=== PATIENT | male | born 1980 | race Caucasian/White ===

== ENCOUNTER 2021-11-06 10:00 | Inpatient (IN) | payer OTHER ==
[~2021-11-06] VITALS: Ht 177.8 cm; Wt 89.6 kg
[~2021-11-06 10:00] MED LIST: AMOX500 PO; FEXPSEER PO; LISI10 PO; LISI5 PO
[2021-11-06 12:01] LABS: BASOPHILS ABSOLUTE AUTO 0.13 K/mm3 (0.00-0.23); BASOPHILS PERCENT AUTO 0 % (0-2); EOSINOPHILS PERCENT AUTO 0 % (0-6); Hematocrit 44.7 % (37.0-53.0); Hemoglobin 15.4 g/dL (13.5-17.5); IMMATURE GRAN ABSOLUTE AUTO 0.43 K/mm3 (0.00-0.10); IMMATURE GRAN PERCENT AUTO 1 % (0-1); LYMPHOCYTES ABSOLUTE AUTO 2.41 K/mm3 (0.84-5.20); LYMPHOCYTES PERCENT AUTO 7 % (21-46); MONOCYTES ABSOLUTE AUTO 4.12 K/mm3 (0.16-1.47); MONOCYTES PERCENT AUTO 13 % (4-13); Mean Corpuscular HGB 30.1 pg (26.0-34.0); Mean Corpuscular HGB Conc 34.5 g/dL (31.5-36.5); Mean Corpuscular Volume 87 fL (80-100); Mean Platelet Volume 11.7 fL (9.1-12.4); NEUTROPHILS ABSOLUTE AUTO 25.98 K/mm3 (1.96-9.15); NEUTROPHILS PERCENT AUTO 79 % (41-73); Platelet Count 393 K/mm3 (150-400); RDW Standard Deviation 38.9 fL (35.1-46.3); Red Blood Cell Count 5.12 M/mm3 (4.30-5.90); White Blood Cell Count 33.07 K/mm3 (4.00-11.30)
[2021-11-06 13:09] LABS: Influenza A, PCR NEGATIVE (NEGATIVE); Influenza B, PCR NEGATIVE (NEGATIVE); Resp Syncytial Virus, PCR NEGATIVE (NEGATIVE); SARS-Cov-2 (COVID-19) PCR, MMC NEGATIVE (NEGATIVE)
[2021-11-06 13:18] LABS: International Normalized Ratio 1.08; Prothrombin Time Results 11.3 Sec (9.7-11.5)
[2021-11-06 13:22] LABS: Alanine Aminotransfer (ALT/SGP 46 U/L (12-78); Albumin, Blood 2.5 g/dL (3.4-5.0); Albumin/Globulin Ratio 0.5 (0.8-1.8); Alk Phos 193 U/L (50-136); Anion Gap 10 mmol/L (6-16); Aspartate Aminotrans (AST/SGOT 33 U/L (12-37); Bilirubin, Total 0.4 mg/dL (0.1-1.0); Blood Urea Nitrogen 10 mg/dL (8-24); Bun/Creatinine Ratio 14.4 (12.0-20.0); CO2, Blood 29 mmol/L (21-32); Chloride, Blood 92 mmol/L (98-108); Globulin, Blood 5.5 g/dL (2.2-4.0); Glomerular Filtration Rate >60 (60-); Glucose, Blood 353 mg/dL (70-99); Potassium, Blood 3.7 mmol/L (3.5-5.5); Sodium, Blood 131 mmol/L (136-145)
[2021-11-06 14:04] LABS: Source, Urine Clean Catch
[2021-11-06 14:09] LABS: Appearance, Urine Clear (Clear); Bilirubin, Urine Neg (Neg); Blood, Urine Neg (Neg); Color, Urine Yellow (P-Yellow); Glucose Qualitative, Urine 4+ (Neg); Ketones, Urine 2+ (Neg); Leukocyte Esterase, Urine Neg (Neg); Nitrite, Urine Neg (Neg); Protein, Urine 3+ (Neg); Urobilinogen, Urine NORM (Normal)
[2021-11-06 14:20] LABS: Bacteria Few /hpf; Red Blood Cells, Urine Not Seen /hpf (0-2); Squamous Epithelial Cells Rare /hpf (Few); White Blood Cells, Urine Rare /hpf (0-5)
--- NOTE | 2021-11-06 19:12 | NUR ---
1740 RECEIVED PT TO RM 339 VIA JOHNNYRKARI FROM ER. PT IS A&O, PLEASANT AND CO-OP. PT TO ER WITH C/O CONGESTION AND SOB, FEELING TERRIBLE; ADMITTED FOR PNM. PER REPORT FROM JOIE SIDHU, PT RECEIVED ROCEPHIN AND ZITHROMYCIN IN ER. UNASYN INFUSING AT THIS TIME. TO RM AT BS WHEN ADMITTED. OTHER FAMILY TO RM AFTER LEFT. PT SLEEPING MOSTLY AFTER ADMISSION, BUT WOKE WITH FAMILY. DENIES FURTHER NEEDS AT THIS TIME. CALL LT IN REACH.
--- NOTE | 2021-11-07 03:03 | NUR ---
WINDING OPERATOR SUMMARY HAS BEEN RESTING QUIETLY WITH FEW INTERRUPTIONS. LUNG SOUNDS DIMINISHED PER AUSCULTATION WHEN ASSESED. IV ANTIBIOTICS INFUSING PER MD ORDERS - SEE MAR FOR DETAILS. LR INFUSING AT 100 ML/HR. UP TO BATHROOM AD BALDEMAR. MED TELE SINUS TACH. ASYMPTOMATIC. CALL LIGHT IN REACH
[2021-11-07 05:01] LABS: BASOPHILS ABSOLUTE AUTO 0.09 K/mm3 (0.00-0.23); BASOPHILS PERCENT AUTO 0 % (0-2); EOSINOPHILS ABSOLUTE AUTO 0.05 K/mm3 (0.00-0.68); EOSINOPHILS PERCENT AUTO 0 % (0-6); Hematocrit 41.1 % (37.0-53.0); Hemoglobin 13.8 g/dL (13.5-17.5); IMMATURE GRAN ABSOLUTE AUTO 0.23 K/mm3 (0.00-0.10); IMMATURE GRAN PERCENT AUTO 1 % (0-1); LYMPHOCYTES ABSOLUTE AUTO 3.27 K/mm3 (0.84-5.20); LYMPHOCYTES PERCENT AUTO 12 % (21-46); MONOCYTES ABSOLUTE AUTO 2.85 K/mm3 (0.16-1.47); MONOCYTES PERCENT AUTO 11 % (4-13); Mean Corpuscular HGB 29.6 pg (26.0-34.0); Mean Corpuscular HGB Conc 33.6 g/dL (31.5-36.5); Mean Corpuscular Volume 88 fL (80-100); NEUTROPHILS ABSOLUTE AUTO 20.68 K/mm3 (1.96-9.15); NEUTROPHILS PERCENT AUTO 76 % (41-73); Platelet Count 375 K/mm3 (150-400); RDW Coefficient Variation 12.3 % (11.7-14.2); RDW Standard Deviation 39.4 fL (35.1-46.3); Red Blood Cell Count 4.67 M/mm3 (4.30-5.90); White Blood Cell Count 27.17 K/mm3 (4.00-11.30)
[2021-11-07 05:48] LABS: Anion Gap 7 mmol/L (6-16); Blood Urea Nitrogen 10 mg/dL (8-24); Bun/Creatinine Ratio 16.3 (12.0-20.0); CO2, Blood 28 mmol/L (21-32); Calcium, Blood 8.6 mg/dL (8.5-10.1); Chloride, Blood 99 mmol/L (98-108); Creatinine, Blood 0.61 mg/dL (0.60-1.20); Glomerular Filtration Rate >60 (60-); Glucose, Blood 204 mg/dL (70-99); Potassium, Blood 3.5 mmol/L (3.5-5.5); Sodium, Blood 134 mmol/L (136-145)
--- NOTE | 2021-11-07 19:39 | NUR ---
SHIFT SUMMARY- PT ALERT, ORIENTED AND INDEPENDENT IN THEROOM. PT HAS BEEN SWEATING A LOT TODAY, DR AWARE. IVF DC'D PT NOW ON IV ABX Q6, TELE DC'D PRIOR TO A SHOWER AT THE END OF THE SHIFT. PT STATED AT SHIFT CHANGE DURRING BEDSIDE REPORT THAT HE NO LONGER HAS ANY SINUS PAIN, PT STATED THE SHOWER REALLY HELPED ALOT. NIGHT RN VITALIY PRESENT FOR THIS DISCUSSION AND IS AWARE. PT CURRENTLY IN BED, CALL LIGHT IN REACH BEDSIDE REPORT COMPLETED NO S&S OF DISTRESS NOTED.
--- NOTE | 2021-11-08 03:27 | NUR ---
MEDICAL ASSISTANT CARDIOLOGY SUMMARY HAS BEEN RESTING QUIETLY WITH FEW INTERRUPTIONS SINCE SHIFT COMMENCE. CBG WAS 299 AT BEDTIME, COVERAGE GIVEN. DISCUSSED DIABETES WITH NURSE. IV ANTIBIOTICS INFUSING ORDERED - SEE MAR FOR DETAILS. BP ELEVATED, ANTIHYPERTENSIVE ADMINISTERED, BP TRENDING DOWN. WILL CONTINUE TO MONITOR. CALL LIGHT IN REACH
[2021-11-08 05:28] LABS: BASOPHILS ABSOLUTE AUTO 0.07 K/mm3 (0.00-0.23); BASOPHILS PERCENT AUTO 1 % (0-2); EOSINOPHILS ABSOLUTE AUTO 0.27 K/mm3 (0.00-0.68); EOSINOPHILS PERCENT AUTO 2 % (0-6); Hematocrit 42.6 % (37.0-53.0); Hemoglobin 14.2 g/dL (13.5-17.5); IMMATURE GRAN ABSOLUTE AUTO 0.14 K/mm3 (0.00-0.10); IMMATURE GRAN PERCENT AUTO 1 % (0-1); LYMPHOCYTES ABSOLUTE AUTO 2.52 K/mm3 (0.84-5.20); LYMPHOCYTES PERCENT AUTO 20 % (21-46); MONOCYTES ABSOLUTE AUTO 1.42 K/mm3 (0.16-1.47); MONOCYTES PERCENT AUTO 11 % (4-13); Mean Corpuscular HGB 29.3 pg (26.0-34.0); Mean Corpuscular HGB Conc 33.3 g/dL (31.5-36.5); Mean Corpuscular Volume 88 fL (80-100); Mean Platelet Volume 11.1 fL (9.1-12.4); NEUTROPHILS ABSOLUTE AUTO 8.13 K/mm3 (1.96-9.15); NEUTROPHILS PERCENT AUTO 65 % (41-73); Platelet Count 420 K/mm3 (150-400); RDW Coefficient Variation 12.3 % (11.7-14.2); RDW Standard Deviation 39.8 fL (35.1-46.3); Red Blood Cell Count 4.85 M/mm3 (4.30-5.90); White Blood Cell Count 12.55 K/mm3 (4.00-11.30)
[2021-11-08 06:03] LABS: Anion Gap 7 mmol/L (6-16); Blood Urea Nitrogen 17 mg/dL (8-24); Bun/Creatinine Ratio 28.7 (12.0-20.0); CO2, Blood 28 mmol/L (21-32); Calcium, Blood 9.3 mg/dL (8.5-10.1); Chloride, Blood 103 mmol/L (98-108); Creatinine, Blood 0.59 mg/dL (0.60-1.20); Glomerular Filtration Rate >60 (60-); Glucose, Blood 210 mg/dL (70-99); Phosphorus, Blood 4.2 mg/dL (2.5-4.9); Potassium, Blood 3.7 mmol/L (3.5-5.5); Sodium, Blood 138 mmol/L (136-145)
--- NOTE | 2021-11-08 06:45 | NUR ---
NOTE BLOODY CONTENTS IN DRINKING CUP. PT VOICED HAVING HAD HEMOPTYSIS FOR THE "PAST 10 DAYS". AND SAID THAT IS WHY HE WAS HERE. WILL PASS THIS ON TO AM FOR OBSERVATION AND POSSIBLE FOLLOW UP. CALL LIGHT IN REACH
[2021-11-08] MEDS ORDERED: AZIT250 PO (16:22)
[2021-11-08] MEDS ORDERED: Acetaminophen325 M1 PO (16:22)
[2021-11-08] MEDS ORDERED: Prinivil10 MG PO (16:23)
[2021-11-08] MEDS ORDERED: METF500 PO (16:24)
[2021-11-08] MEDS ORDERED: CEFP200 PO (16:24)
[2021-11-08] MEDS ORDERED: GLIP5ER PO (16:24)
[2021-11-08] MEDS ORDERED: VISBIOME 112.51 EACH PO (16:24)
--- NOTE | 2021-11-08 17:04 | NUR ---
DISCHARGE SUMMARY IV REMOVED, DISCHARGE EDUCATION REVIEWED WITH AND SIGNED BY PT. PT TRANSPORTED TO [facility] WITH PERSONAL BELONGINGS. MEDS FAXED TO PHARMACY
== END 2021-11-08 16:54 | disposition home or self-care (01) | DRG 871 ==
LOC: ER 10:00 → MEDS 14:49
PROVIDERS: Physician Assistant; ADMIT Family Medicine
DX: A41.9 Sepsis, unspecified organism (principal); J18.9 Pneumonia, unspecified organism; E87.1 Hypo-osmolality and hyponatremia; R04.2 Hemoptysis; E11.9 Type 2 diabetes mellitus without complications; Z20.822 Contact with and (suspected) exposure to COVID-19; J01.00 Acute maxillary sinusitis, unspecified; J01.20 Acute ethmoidal sinusitis, unspecified; D72.829 Elevated white blood cell count, unspecified; I10 Essential (primary) hypertension; F17.210 Nicotine dependence, cigarettes, uncomplicated
CPT/HCPCS: 0241U; 36415; 70450; 71045; 71260; 80048; 80053; 80069; 81001; 82947; 83036; 83605; 85025; 85610; 85730; 87070; 87086; 87205; 93005; 93010; 96365; 96375; 99285-25; A9270; J0295; J0360; J0456; J0696; J1650; J1815; J1885; J7030; J7040; J7050; J7120; Q9967

== ENCOUNTER 2023-11-23 21:35 | Emergency (ER) | payer OTHER ==
[~2023-11-23] VITALS: Ht 177.8 cm; Wt 88.5 kg
[~2023-11-23 21:35] MED LIST changes: +AZIT250 PO; +Acetaminophen325 M1 PO; +CEFP200 PO; +GLIP5ER PO; +METF500 PO; +Prinivil10 MG PO; +VISBIOME 112.51 EACH PO
[2023-11-23 21:51] VITALS: BP 157/101
== END 2023-11-23 22:10 | disposition home or self-care (01) ==
LOC: ER 21:35
DX: T16.1XXA Foreign body in right ear, initial encounter (principal); I10 Essential (primary) hypertension; F17.210 Nicotine dependence, cigarettes, uncomplicated; W44.G1XA Audio device entering into or through a natural orifice, initial encounter; Z79.01 Long term (current) use of anticoagulants; Z79.84 Long term (current) use of oral hypoglycemic drugs; Z79.899 Other long term (current) drug therapy
CPT/HCPCS: 69200; 99282-25

== ENCOUNTER 2025-05-11 15:02 | Emergency (ER) | payer OTHER ==
[~2025-05-11] VITALS: Ht 177.8 cm; Wt 86.2 kg
[2025-05-11 15:09] VITALS: BP 166/106
[2025-05-11] MEDS ORDERED: Ketorolac Tromethamine 30mg Vial IM ONE (19:55)
== END 2025-05-11 20:12 | disposition home or self-care (01) ==
LOC: ER 15:02
DX: M79.672 Pain in left foot (principal); I10 Essential (primary) hypertension; F17.210 Nicotine dependence, cigarettes, uncomplicated; Z79.899 Other long term (current) drug therapy; Z79.84 Long term (current) use of oral hypoglycemic drugs
CPT/HCPCS: 73630; 96372; 99283-25; J1885

== ENCOUNTER → 2025-05-20 | Outpatient (CLI) | payer OTHER ==
[2025-05-20 15:42] LABS: BASOPHILS ABSOLUTE AUTO 0.08 K/mm3 (0.00-0.23); BASOPHILS PERCENT AUTO 1 % (0-2); EOSINOPHILS ABSOLUTE AUTO 0.39 K/mm3 (0.00-0.68); EOSINOPHILS PERCENT AUTO 4 % (0-6); Hematocrit 44.0 % (37.0-53.0); Hemoglobin 14.7 g/dL (13.5-17.5); IMMATURE GRAN ABSOLUTE AUTO 0.03 K/mm3 (0.00-0.10); IMMATURE GRAN PERCENT AUTO 0 % (0-1); LYMPHOCYTES ABSOLUTE AUTO 1.94 K/mm3 (0.84-5.20); LYMPHOCYTES PERCENT AUTO 18 % (21-46); MONOCYTES ABSOLUTE AUTO 1.27 K/mm3 (0.16-1.47); MONOCYTES PERCENT AUTO 12 % (4-13); Mean Corpuscular HGB Conc 33.4 g/dL (31.5-36.5); Mean Corpuscular Volume 90 fL (80-100); NEUTROPHILS ABSOLUTE AUTO 6.96 K/mm3 (1.96-9.15); NEUTROPHILS PERCENT AUTO 65 % (41-73); NRBC ABSOLUTE 0.00 K/mm3 (0.00-0.02); NRBC Auto 0.0 /100 WBC (0.0-0.2); Platelet Count 396 K/mm3 (150-400); RDW Coefficient Variation 12.4 % (11.7-14.2); RDW Standard Deviation 41.1 fL (35.1-46.3)
[2025-05-20 15:59] LABS: Anion Gap 9.0 mmol/L (3-11); Blood Urea Nitrogen 15.0 mg/dL (8-24); C-REACTIVE PROTEIN, EXT RANGE 11.2 mg/dL (0.000-0.300); CO2, Blood 28.0 mmol/L (21-32); Calcium, Blood 9.6 mg/dL (8.5-10.1); Chloride, Blood 101.0 mmol/L (98-108); Creatinine, Blood 0.71 mg/dL (0.60-1.20); Glucose, Blood 242.0 mg/dL (70-99); Potassium, Blood 4.0 mmol/L (3.5-5.5); Sodium, Blood 134.0 mmol/L (136-145); Uric Acid, Blood 4.2 mg/dL (3.5-7.2)
== END | disposition home or self-care (01) ==
LOC: LAB 15:32 → LAB SHORT 15:32
PROVIDERS: Physician Assistant
DX: I10 Essential (primary) hypertension (principal); R22.42 Localized swelling, mass and lump, left lower limb; M25.572 Pain in left ankle and joints of left foot; E13.9 Other specified diabetes mellitus without complications
CPT/HCPCS: 80048; 84550; 85025; 85651; 86140

== ENCOUNTER 2025-06-11 00:50 | Day surgery (SDC) | payer OTHER ==
[~2025-06-11 00:50] MED LIST changes: +ATOR10 PO; +CEFTRIAXONE2 G1 IV; +LOSA50 PO; +OXYC5 PO; +OZEMPIC2 MG/0.75 SC
[2025-06-11] MEDS ORDERED: CefTRIAXone Sodium 2,000 MG in NS 100 ML IV SCH (01:00)
[2025-06-11 14:30] VITALS: BP 148/89
== END 2025-06-11 14:56 | disposition home or self-care (01) ==
LOC: ATC 00:50
DX: E11.69 Type 2 diabetes mellitus with other specified complication (principal); M86.072 Acute hematogenous osteomyelitis, left ankle and foot; I10 Essential (primary) hypertension; Z87.891 Personal history of nicotine dependence; Z79.84 Long term (current) use of oral hypoglycemic drugs; Z79.899 Other long term (current) drug therapy
CPT/HCPCS: 96365; J0696

== ENCOUNTER 2025-06-12 01:29 | Day surgery (SDC) | payer OTHER ==
[~2025-06-12 01:29] MED LIST changes: +CefTRIAXone Sodium 2,000 MG in NS 100 ML IV SCH
[2025-06-12 14:27] VITALS: BP 160/98
== END 2025-06-12 14:50 | disposition home or self-care (01) ==
LOC: ATC 01:29
DX: M86.072 Acute hematogenous osteomyelitis, left ankle and foot (principal); I10 Essential (primary) hypertension; E11.9 Type 2 diabetes mellitus without complications; Z87.891 Personal history of nicotine dependence; Z79.84 Long term (current) use of oral hypoglycemic drugs; Z79.899 Other long term (current) drug therapy
CPT/HCPCS: 96365; J0696

== ENCOUNTER 2025-06-13 09:32 | Day surgery (SDC) | payer OTHER ==
[2025-06-13 09:43] VITALS: BP 150/90
== END 2025-06-13 10:10 | disposition home or self-care (01) ==
LOC: ATC 09:32
DX: E11.69 Type 2 diabetes mellitus with other specified complication (principal); M86.072 Acute hematogenous osteomyelitis, left ankle and foot; I10 Essential (primary) hypertension; Z87.891 Personal history of nicotine dependence; Z79.84 Long term (current) use of oral hypoglycemic drugs; Z79.899 Other long term (current) drug therapy
CPT/HCPCS: 96365; J0696

== ENCOUNTER 2025-06-14 02:10 | Day surgery (SDC) | payer OTHER ==
[~2025-06-14 02:10] MED LIST changes: -CefTRIAXone Sodium 2,000 MG in NS 100 ML IV SCH
[2025-06-14] MEDS ORDERED: CefTRIAXone Sodium 2,000 MG in NS 100 ML IV SCH (06:00)
[2025-06-14 09:20] VITALS: BP 134/77
== END 2025-06-14 09:48 | disposition home or self-care (01) ==
LOC: ATC 02:10
DX: M86.072 Acute hematogenous osteomyelitis, left ankle and foot (principal); E11.9 Type 2 diabetes mellitus without complications; I10 Essential (primary) hypertension; Z87.891 Personal history of nicotine dependence; Z79.84 Long term (current) use of oral hypoglycemic drugs; Z79.899 Other long term (current) drug therapy
CPT/HCPCS: 96365; J0696

== ENCOUNTER 2025-06-15 00:15 | Day surgery (SDC) | payer OTHER ==
[2025-06-15] MEDS ORDERED: CefTRIAXone Sodium 2,000 MG in NS 100 ML IV SCH (01:00)
[2025-06-15 09:10] VITALS: BP 157/82
== END 2025-06-15 09:35 | disposition home or self-care (01) ==
LOC: ATC 00:15
DX: M86.072 Acute hematogenous osteomyelitis, left ankle and foot (principal); I10 Essential (primary) hypertension; E11.9 Type 2 diabetes mellitus without complications; Z87.891 Personal history of nicotine dependence; Z79.84 Long term (current) use of oral hypoglycemic drugs; Z79.899 Other long term (current) drug therapy
CPT/HCPCS: 96365; J0696

== ENCOUNTER 2025-06-16 01:23 | Day surgery (SDC) | payer OTHER ==
[~2025-06-16 01:23] MED LIST changes: +CefTRIAXone Sodium 2,000 MG in NS 100 ML IV SCH
[2025-06-16 09:13] VITALS: BP 167/111
== END 2025-06-16 09:30 | disposition home or self-care (01) ==
LOC: ATC 01:23
DX: E11.69 Type 2 diabetes mellitus with other specified complication (principal); M86.072 Acute hematogenous osteomyelitis, left ankle and foot; I10 Essential (primary) hypertension; Z87.891 Personal history of nicotine dependence; Z79.84 Long term (current) use of oral hypoglycemic drugs; Z79.899 Other long term (current) drug therapy
CPT/HCPCS: 96365; J0696

== ENCOUNTER 2025-06-17 01:23 | Day surgery (SDC) | payer OTHER ==
[2025-06-17 08:52] VITALS: BP 141/92
== END 2025-06-17 09:13 | disposition home or self-care (01) ==
LOC: ATC 01:23
DX: E11.69 Type 2 diabetes mellitus with other specified complication (principal); M86.072 Acute hematogenous osteomyelitis, left ankle and foot; E11.9 Type 2 diabetes mellitus without complications; I10 Essential (primary) hypertension; Z87.891 Personal history of nicotine dependence; Z79.84 Long term (current) use of oral hypoglycemic drugs; Z79.899 Other long term (current) drug therapy
CPT/HCPCS: 96365; J0696

== ENCOUNTER 2025-06-18 00:47 | Day surgery (SDC) | payer OTHER ==
[~2025-06-18 00:47] MED LIST changes: -CefTRIAXone Sodium 2,000 MG in NS 100 ML IV SCH
[2025-06-18] MEDS ORDERED: CefTRIAXone Sodium 2,000 MG in NS 100 ML IV SCH (01:00)
[2025-06-18 09:30] VITALS: BP 146/92
== END 2025-06-18 09:50 | disposition home or self-care (01) ==
LOC: ATC 00:47
DX: E11.69 Type 2 diabetes mellitus with other specified complication (principal); M86.072 Acute hematogenous osteomyelitis, left ankle and foot; I10 Essential (primary) hypertension; Z87.891 Personal history of nicotine dependence; Z79.84 Long term (current) use of oral hypoglycemic drugs; Z79.899 Other long term (current) drug therapy
CPT/HCPCS: 96365; J0696

== ENCOUNTER 2025-06-19 01:05 | Day surgery (SDC) | payer OTHER ==
[2025-06-19] MEDS ORDERED: CefTRIAXone Sodium 2,000 MG in NS 100 ML IV SCH (06:00)
[2025-06-19 09:33] VITALS: BP 142/97
== END 2025-06-19 09:55 | disposition home or self-care (01) ==
LOC: ATC 01:05
DX: M86.072 Acute hematogenous osteomyelitis, left ankle and foot (principal); I10 Essential (primary) hypertension; E11.9 Type 2 diabetes mellitus without complications; Z87.891 Personal history of nicotine dependence; Z79.84 Long term (current) use of oral hypoglycemic drugs; Z79.899 Other long term (current) drug therapy
CPT/HCPCS: 96365; J0696

== ENCOUNTER 2025-06-20 01:01 | Day surgery (SDC) | payer OTHER ==
[2025-06-20] MEDS ORDERED: CefTRIAXone Sodium 2,000 MG in NS 100 ML IV SCH (06:00)
[2025-06-20 09:35] VITALS: BP 161/94
--- NOTE | 2025-06-20 10:55 | NUR ---
PT REPORTS HE SAW HIS PCP ON SUNDAY AND CALLED IN RX'S FOR BP, PAIN, AND CHOLESTEROL TO THE [facility]. PHARMACY HAS BEEN CLOSED SINCE THE HOLIDAY AND PT HASN'T TAKEN ANY MEDS SINCE SUNDAY. PT REPORTS NO HIGH BP SYMPTOMS, BUT DOES REPORT PAIN KEEPING HIM UP AT NIGHT. RECOMMENDED SEEING URGENT CARE OR ER FOR MANAGEMENT TO GET HIM THROUGH THE WEEKEND. PT IS ABLE TO CHECK BP AT HOME. PT WILL MONITOR AND GO TO DR IF HE BECOMES SYMPTOMATIC OR BP CONTINUES TO RISE THROUGH THE WEEKEND.
== END 2025-06-20 09:59 | disposition home or self-care (01) ==
LOC: ATC 01:01
DX: E11.69 Type 2 diabetes mellitus with other specified complication (principal); M86.072 Acute hematogenous osteomyelitis, left ankle and foot; I10 Essential (primary) hypertension; Z87.891 Personal history of nicotine dependence; Z79.84 Long term (current) use of oral hypoglycemic drugs; Z79.899 Other long term (current) drug therapy
CPT/HCPCS: 96365; J0696

== ENCOUNTER 2025-06-21 04:05 | Day surgery (SDC) | payer OTHER ==
[~2025-06-21 04:05] MED LIST changes: +CefTRIAXone Sodium 2,000 MG in NS 100 ML IV SCH
[2025-06-21 09:00] VITALS: BP 140/89
== END 2025-06-21 09:36 | disposition home or self-care (01) ==
LOC: ATC 04:05
DX: M86.072 Acute hematogenous osteomyelitis, left ankle and foot (principal); E11.69 Type 2 diabetes mellitus with other specified complication; I10 Essential (primary) hypertension; Z79.84 Long term (current) use of oral hypoglycemic drugs; Z79.899 Other long term (current) drug therapy; Z87.891 Personal history of nicotine dependence
CPT/HCPCS: 96365; J0696

== ENCOUNTER 2025-06-22 02:32 | Day surgery (SDC) | payer OTHER ==
[2025-06-22 09:04] VITALS: BP 145/86
== END 2025-06-22 09:34 | disposition home or self-care (01) ==
LOC: ATC 02:32
DX: E11.69 Type 2 diabetes mellitus with other specified complication (principal); M86.072 Acute hematogenous osteomyelitis, left ankle and foot; I10 Essential (primary) hypertension; Z87.891 Personal history of nicotine dependence; Z79.84 Long term (current) use of oral hypoglycemic drugs; Z79.899 Other long term (current) drug therapy
CPT/HCPCS: 96365; J0696

== ENCOUNTER 2025-06-23 02:38 | Day surgery (SDC) | payer OTHER ==
[2025-06-23 09:19] VITALS: BP 120/81
== END 2025-06-23 09:43 | disposition home or self-care (01) ==
LOC: ATC 02:38
DX: M86.072 Acute hematogenous osteomyelitis, left ankle and foot (principal); E11.9 Type 2 diabetes mellitus without complications; I10 Essential (primary) hypertension; Z87.891 Personal history of nicotine dependence; Z79.84 Long term (current) use of oral hypoglycemic drugs; Z79.899 Other long term (current) drug therapy
CPT/HCPCS: 96365; J0696

== ENCOUNTER 2025-06-24 00:42 | Day surgery (SDC) | payer OTHER ==
[~2025-06-24 00:42] MED LIST changes: -CefTRIAXone Sodium 2,000 MG in NS 100 ML IV SCH
[2025-06-24] MEDS ORDERED: CefTRIAXone Sodium 2,000 MG in NS 100 ML IV SCH (01:00)
[2025-06-24 09:21] VITALS: BP 145/94
== END 2025-06-24 09:42 | disposition home or self-care (01) ==
LOC: ATC 00:42
DX: M86.072 Acute hematogenous osteomyelitis, left ankle and foot (principal); I10 Essential (primary) hypertension; E11.69 Type 2 diabetes mellitus with other specified complication; Z79.84 Long term (current) use of oral hypoglycemic drugs; Z79.85 Long-term (current) use of injectable non-insulin antidiabetic drugs; Z79.899 Other long term (current) drug therapy; Z87.891 Personal history of nicotine dependence
CPT/HCPCS: 96365; J0696

== ENCOUNTER 2025-06-25 02:18 | Day surgery (SDC) | payer OTHER ==
[2025-06-25] MEDS ORDERED: CefTRIAXone Sodium 2,000 MG in NS 100 ML IV SCH (06:00)
[2025-06-25 09:15] VITALS: BP 130/92
== END 2025-06-25 09:39 | disposition home or self-care (01) ==
LOC: ATC 02:18
DX: E11.69 Type 2 diabetes mellitus with other specified complication (principal); M86.072 Acute hematogenous osteomyelitis, left ankle and foot; I10 Essential (primary) hypertension; Z87.891 Personal history of nicotine dependence; Z79.84 Long term (current) use of oral hypoglycemic drugs; Z79.899 Other long term (current) drug therapy
CPT/HCPCS: 96365; 99211; J0696

== ENCOUNTER 2025-06-26 03:25 | Day surgery (SDC) | payer OTHER ==
[2025-06-26] MEDS ORDERED: CefTRIAXone Sodium 2,000 MG in NS 100 ML IV SCH (06:00)
[2025-06-26 09:17] VITALS: BP 151/89
== END 2025-06-26 09:49 | disposition home or self-care (01) ==
LOC: ATC 03:25
DX: E11.69 Type 2 diabetes mellitus with other specified complication (principal); M86.072 Acute hematogenous osteomyelitis, left ankle and foot; I10 Essential (primary) hypertension; Z87.891 Personal history of nicotine dependence; Z79.84 Long term (current) use of oral hypoglycemic drugs; Z79.899 Other long term (current) drug therapy
CPT/HCPCS: 96365; J0696

== ENCOUNTER 2025-06-27 02:23 | Day surgery (SDC) | payer OTHER ==
[~2025-06-27 02:23] MED LIST changes: +CefTRIAXone Sodium 2,000 MG in NS 100 ML IV SCH
[2025-06-27 09:15] VITALS: BP 156/93
== END 2025-06-27 09:38 | disposition home or self-care (01) ==
LOC: ATC 02:23
DX: M86.072 Acute hematogenous osteomyelitis, left ankle and foot (principal); E11.9 Type 2 diabetes mellitus without complications; I10 Essential (primary) hypertension; Z87.891 Personal history of nicotine dependence; Z79.84 Long term (current) use of oral hypoglycemic drugs; Z79.899 Other long term (current) drug therapy
CPT/HCPCS: 96365; J0696

== ENCOUNTER 2025-06-28 00:17 | Day surgery (SDC) | payer OTHER ==
[~2025-06-28 00:17] MED LIST changes: -CefTRIAXone Sodium 2,000 MG in NS 100 ML IV SCH
[2025-06-28] MEDS ORDERED: CefTRIAXone Sodium 2,000 MG in NS 100 ML IV SCH (06:00)
[2025-06-28 09:04] VITALS: BP 148/90
== END 2025-06-28 09:28 | disposition home or self-care (01) ==
LOC: ATC 00:17
DX: M86.072 Acute hematogenous osteomyelitis, left ankle and foot (principal); E11.69 Type 2 diabetes mellitus with other specified complication; I10 Essential (primary) hypertension; Z79.84 Long term (current) use of oral hypoglycemic drugs; Z79.85 Long-term (current) use of injectable non-insulin antidiabetic drugs; Z79.899 Other long term (current) drug therapy; Z87.891 Personal history of nicotine dependence
CPT/HCPCS: 96365; J0696

== ENCOUNTER 2025-06-29 04:34 | Day surgery (SDC) | payer OTHER ==
[2025-06-29] MEDS ORDERED: CefTRIAXone Sodium 2,000 MG in NS 100 ML IV SCH (06:00)
[2025-06-29 08:40] VITALS: BP 165/94
== END 2025-06-29 09:05 | disposition home or self-care (01) ==
LOC: ATC 04:34
DX: E11.69 Type 2 diabetes mellitus with other specified complication (principal); M86.072 Acute hematogenous osteomyelitis, left ankle and foot; I10 Essential (primary) hypertension; Z87.891 Personal history of nicotine dependence; Z79.84 Long term (current) use of oral hypoglycemic drugs; Z79.899 Other long term (current) drug therapy
CPT/HCPCS: 96365; 99211; J0696

== ENCOUNTER 2025-06-30 02:43 | Day surgery (SDC) | payer OTHER ==
[~2025-06-30 02:43] MED LIST changes: +CefTRIAXone Sodium 2,000 MG in NS 100 ML IV SCH
[2025-06-30 09:20] VITALS: BP 164/93
== END 2025-06-30 09:41 | disposition home or self-care (01) ==
LOC: ATC 02:43
DX: E11.69 Type 2 diabetes mellitus with other specified complication (principal); M86.072 Acute hematogenous osteomyelitis, left ankle and foot; I10 Essential (primary) hypertension; Z87.891 Personal history of nicotine dependence; Z79.84 Long term (current) use of oral hypoglycemic drugs; Z79.899 Other long term (current) drug therapy
CPT/HCPCS: 96365; J0696

== ENCOUNTER 2025-07-01 00:34 | Day surgery (SDC) | payer OTHER ==
[~2025-07-01 00:34] MED LIST changes: -CefTRIAXone Sodium 2,000 MG in NS 100 ML IV SCH
[2025-07-01] MEDS ORDERED: CefTRIAXone Sodium 2,000 MG in NS 100 ML IV SCH (06:00)
[2025-07-01 09:05] VITALS: BP 155/95
== END 2025-07-01 09:27 | disposition home or self-care (01) ==
LOC: ATC 00:34
DX: E11.69 Type 2 diabetes mellitus with other specified complication (principal); M86.072 Acute hematogenous osteomyelitis, left ankle and foot; I10 Essential (primary) hypertension; Z87.891 Personal history of nicotine dependence; Z79.84 Long term (current) use of oral hypoglycemic drugs; Z79.899 Other long term (current) drug therapy
CPT/HCPCS: 96365; J0696

== ENCOUNTER 2025-07-02 03:54 | Day surgery (SDC) | payer OTHER ==
[~2025-07-02 03:54] MED LIST changes: +CefTRIAXone Sodium 2,000 MG in NS 100 ML IV SCH
[2025-07-02 09:59] VITALS: BP 149/87
== END 2025-07-02 10:19 | disposition home or self-care (01) ==
LOC: ATC 03:54
DX: E11.69 Type 2 diabetes mellitus with other specified complication (principal); M86.072 Acute hematogenous osteomyelitis, left ankle and foot; I10 Essential (primary) hypertension; Z87.891 Personal history of nicotine dependence; Z79.84 Long term (current) use of oral hypoglycemic drugs; Z79.899 Other long term (current) drug therapy
CPT/HCPCS: 96365; J0696

== ENCOUNTER 2025-07-03 06:28 | Day surgery (SDC) | payer OTHER ==
[2025-07-03 09:19] VITALS: BP 167/100
== END 2025-07-03 09:39 | disposition home or self-care (01) ==
LOC: ATC 06:28
DX: E11.69 Type 2 diabetes mellitus with other specified complication (principal); M86.072 Acute hematogenous osteomyelitis, left ankle and foot; I10 Essential (primary) hypertension; Z87.891 Personal history of nicotine dependence; Z79.84 Long term (current) use of oral hypoglycemic drugs; Z79.899 Other long term (current) drug therapy
CPT/HCPCS: 96365; J0696

== ENCOUNTER 2025-07-04 09:11 | Day surgery (SDC) | payer OTHER ==
[2025-07-04 09:15] VITALS: BP 161/95
== END 2025-07-04 09:40 | disposition home or self-care (01) ==
LOC: ATC 09:11
DX: E11.69 Type 2 diabetes mellitus with other specified complication (principal); M86.072 Acute hematogenous osteomyelitis, left ankle and foot; I10 Essential (primary) hypertension; Z87.891 Personal history of nicotine dependence; Z79.84 Long term (current) use of oral hypoglycemic drugs; Z79.899 Other long term (current) drug therapy
CPT/HCPCS: 96365; 99211; J0696

== ENCOUNTER 2025-07-05 04:12 | Day surgery (SDC) | payer OTHER ==
[2025-07-05 09:21] VITALS: BP 156/89
== END 2025-07-05 09:46 | disposition home or self-care (01) ==
LOC: ATC 04:12
DX: M86.072 Acute hematogenous osteomyelitis, left ankle and foot (principal); E11.69 Type 2 diabetes mellitus with other specified complication; I10 Essential (primary) hypertension; Z79.84 Long term (current) use of oral hypoglycemic drugs; Z79.899 Other long term (current) drug therapy; Z87.891 Personal history of nicotine dependence
CPT/HCPCS: 96365; 99211; J0696

== ENCOUNTER 2025-07-06 00:36 | Day surgery (SDC) | payer OTHER ==
[~2025-07-06 00:36] MED LIST changes: -CefTRIAXone Sodium 2,000 MG in NS 100 ML IV SCH
[2025-07-06] MEDS ORDERED: CefTRIAXone Sodium 2,000 MG in NS 100 ML IV SCH (01:00)
[2025-07-06 08:53] VITALS: BP 167/93
== END 2025-07-06 09:15 | disposition home or self-care (01) ==
LOC: ATC 00:36
DX: E11.69 Type 2 diabetes mellitus with other specified complication (principal); M86.072 Acute hematogenous osteomyelitis, left ankle and foot; I10 Essential (primary) hypertension; Z87.891 Personal history of nicotine dependence; Z79.84 Long term (current) use of oral hypoglycemic drugs
CPT/HCPCS: 96365; J0696

== ENCOUNTER 2025-07-07 00:08 | Day surgery (SDC) | payer OTHER ==
[2025-07-07] MEDS ORDERED: CefTRIAXone Sodium 2,000 MG in NS 100 ML IV SCH (01:00)
[2025-07-07 09:22] VITALS: BP 174/107
== END 2025-07-07 09:23 | disposition home or self-care (01) ==
LOC: ATC 00:08
DX: M86.072 Acute hematogenous osteomyelitis, left ankle and foot (principal); E11.9 Type 2 diabetes mellitus without complications; I10 Essential (primary) hypertension; Z87.891 Personal history of nicotine dependence; Z79.84 Long term (current) use of oral hypoglycemic drugs; Z79.899 Other long term (current) drug therapy
CPT/HCPCS: 96365; J0696

== ENCOUNTER 2025-07-08 01:31 | Day surgery (SDC) | payer OTHER ==
[~2025-07-08 01:31] MED LIST changes: +CefTRIAXone Sodium 2,000 MG in NS 100 ML IV SCH
[2025-07-08 10:45] VITALS: BP 140/96
== END 2025-07-08 11:06 | disposition home or self-care (01) ==
LOC: ATC 01:31
DX: M86.072 Acute hematogenous osteomyelitis, left ankle and foot (principal); E11.9 Type 2 diabetes mellitus without complications; I10 Essential (primary) hypertension; Z87.891 Personal history of nicotine dependence; Z79.84 Long term (current) use of oral hypoglycemic drugs; Z79.899 Other long term (current) drug therapy
CPT/HCPCS: 96365; J0696

== ENCOUNTER 2025-07-13 00:24 | Day surgery (SDC) | payer OTHER ==
[~2025-07-13 00:24] MED LIST changes: -CefTRIAXone Sodium 2,000 MG in NS 100 ML IV SCH
[2025-07-13] MEDS ORDERED: CefTRIAXone Sodium 2,000 MG in NS 100 ML IV SCH (01:00)
[2025-07-13 09:27] VITALS: BP 158/85
== END 2025-07-13 09:57 | disposition home or self-care (01) ==
LOC: ATC 00:24
DX: E11.69 Type 2 diabetes mellitus with other specified complication (principal); M86.072 Acute hematogenous osteomyelitis, left ankle and foot; I10 Essential (primary) hypertension; Z87.891 Personal history of nicotine dependence; Z79.84 Long term (current) use of oral hypoglycemic drugs; Z79.899 Other long term (current) drug therapy
CPT/HCPCS: 96365; J0696